=== PATIENT | male | born 2000 | race Caucasian/White ===

== ENCOUNTER 2024-07-03 21:36 | Emergency (ER) | payer OTHER, SELFPAY ==
[2024-07-03 21:37] VITALS: BP 131/77; PULSE 63; RESP 16; TEMP 36.4; O2SAT 97; BMI 26.0
--- NOTE | 2024-07-03 22:23 | EX.ED.GENINJ ---
HPI History of Present Illness Chief Complaint: Laceration Informant: patient Onset/Context/Timing Onset: Today and Hours Mechanism/Context: Blunt Injury and Fall Current Severity: Mild Maximum Severity: Mild Narrative Narrative: Healthy 23-year-old male no seen past medical history. Was at the [email or web address] riding a bucking horse and was thrown off. His lower teeth went through and through his lower lip causing a through and through laceration. This occurred around 7:30 PM. Denies any LOC. No headache or neck pain. Denies any other complaints. Thinks his last tetanus shot was around 10 to 11 years ago. Tetanus Immunization: >10 years Prior similar symptoms: No Recent Illness/Hospitalization: No PFSH PFSH Medical History no medical history no medical history Home Medications ?Medication ?Instructions ?Recorded ?Last Taken ?Type NK 07/03/24 Unknown History Allergy/AdvReac Type Severity Reaction Status Date / Time No Known Allergies Allergy Verified 07/03/24 21:40 Social History Smoking Status: Current every day smoker tobacco type: cigarettes and e-cigarettes ROS ROS ED ROS Narrative Denies recent illness. Constitutional Constitutional ED: Denies fever(s) Eyes Eyes: Denies blurry vision ENT ENT ED: Denies ear pain Cardiovascular Cardiovascular: Denies chest pain Respiratory/Chest Respiratory/Chest: Denies cough or dyspnea Gastrointestinal Gastrointestinal: Denies abdominal pain Genitourinary Genitourinary ED: Denies dysuria Musculoskeletal Musculoskeletal: Denies arthralgias Integumentary Denies abscess or Abrasions Neurologic Neurologic: Denies headache(s) Psychiatric Psychiatric: Denies anxiety Endocrine Endocrinology: Denies cold intolerance Hematologic/Lymphatic Hematologic/Lymphatic: Denies easy bleeding Allergic/Immunologic Allergic/Immunologic ED: Denies mouth swelling EXAM Physical Exam Narrative Exam Narrative: Well-appearing 23-year-old male sitting upright in bed. Vital signs are stable and afebrile. H EENT exam pupils round reactive light. He has a through and through laceration to his lower lip is below the lip on the skin not the vermilion border on the and inside of his lower lip. It is about 1 inch in length. Dentition is intact. Nontender. Not loose. He has no trouble opening closing his mouth. There is no other trauma to his face or head. Neck is nontender with normal range of motion. C-spine, T-spine L-spine and back are completely nontender. Lungs are clear equal and symmetrical. Heart regular rhythm rate about 60 no murmur. Chest wall and ribs are nontender. Abdomen is soft nontender. Pelvic girdle intact. Moving all 4 extremities. 5 out of 5 foreign agent strength. Dorsi plantarflexion intact. Normal range of motion upper and lower extremities. Nontender no deformity. Neurologically is awake and alert. Answering questions following commands. GCS of 15. No focal motor deficits. Const Vital Signs: 07/03/24 21:37 Temperature 97.5 F L Temperature Source Temporal Pulse Rate 63 Respiratory Rate 16 Blood Pressure 131/77 H Blood Pressure Mean 95 Pulse Ox 97 Oxygen Delivery Method Room Air Positive well nourished and well developed; Negative for obese, cachectic, contractures or unkempt General Appearance ED: well developed and NAD; Negative for unkempt, cachectic or contractures Nutritional Appearance: Negative for cachectic or obese HEENT HEENT Narrative: Lower lip through and through laceration approximately 1 inch. Dentition intact. No malocclusion. No trouble opening or closing his jaw. trauma; Negative for atraumatic Eyes PERRL and EOMs intact bilaterally Neck full ROM General: Negative for tenderness Chest Wall inspection of chest normal and palpation of chest normal Resp normal respiratory effort and clear to auscultation bilaterally Effort and Inspection: Negative for pain with movement Auscultation: Negative for rales, rhonchi, wheezes or diminished lung sounds Cardio regular rhythm, S1 normal heart sound, S2 normal heart sound and no murmurs Palpation: Negative for palpable S3 or palpable S4 Rate: regular rate; Negative for bradycardia or tachycardic GI normal to inspection, nondistended, normoactive bowel sounds, non-tender, non-distended and no masses Auscultation: normoactive bowel sounds Palpation: soft; Negative for tender, guarding or rebound tenderness present Back/Spine normal to inspection and no thoracic nor lumbar tenderness General Back: Negative for CVA tenderness Thoracic Spine / Upper Back: Negative for thoracic spinal tenderness Lumbar Spine / Lower Back: Negative for straight leg raise negative bilaterally or straight leg raise positive right Extremity normal to inspection and full ROM General Extremety ED: Negative for deformity, edema or tenderness General Extremity: Negative for deformity or edema Neuro oriented x3, CN's II-XII intact bilaterally, moves all extremities, no focal motor deficits and no sensory deficits noted Adeel Coma Scale: document GCS findings Spontaneous Obeys Commands Oriented 15 Sensorium / Orientation: alert, oriented to person, oriented to place and oriented to time; Negative for orientation impaired or lethargic Motor Exam: strength 5/5 throughout Psych mental status grossly normal and thought process normal Appearance: Negative for unkempt Attitude: No agitated Mood & Affect: Negative for depressed, anxious or tearful Skin no rashes or lesions noted, no wounds, skin turgor normal and no jaundice General Skin Exam: Negative for other Rashes: No rashes noted Trauma: Negative for abrasion Wounds: wounds noted PROC Procedures Lacerations Through and through lower lip laceration repair:: Length: 1.5 in Depth: Through and through lip laceration Shape: Linear Prep: Shure-Clens Laceration repair: Local, Skin sutures and Wound explored Suture Information: Vicryl, Ethilon, Simple and 5-0 Comment: Through and through lip laceration of the lower lip. The outer lacerations on the skin below the lip. About an inch in length. Goes through a 70 Finesse of tissue into the inner mucosal surface of the mouth. Both need to be repaired. Area will be locally anesthetized with plain lidocaine. Cleaned with Shur-Clens washed with saline and irrigated. Explored. The outer portion of the closed with 5-0 Ethilon. 3 simple interrupted 5-0 Ethilon sutures on the outside. The inner portion of the closed with 5-0 Vicryl. 5, 5-0 Vicryl sutures on the inside. Patient will be instructed on wound care and suture removal. Good hemostasis and wound closure is obtained. MDM MDM MDM Narrative Medical decision making narrative: 23-year-old male bucked off a horse tonight in the [place]. Through and through lip laceration. Does not want his tetanus updated. Laceration was locally anesthetized with lidocaine. Cleaned with Shur-Clens washed, irrigated with saline. Explored. Closed using five 5-0 Vicryl sutures inside. 350 simple interrupted sutures on the outside. Proper hemostasis wound closure is obtained. Discharge Plan Triage Chief Complaint: Laceration ED Provider: Sean Mullins Dx/Rx/DC Orders Clinical Impression: Laceration of lip, Animal-rider injured by fall from or being thrown from horse in noncollision accident, initial encounter Instructions: ED Laceration, Lip or Mouth Prescriptions: No Action NK Primary Care Provider: Care Physician,No Primary Referrals: NOT,DEFINED [Non-Staff] - Activity Restrictions/Additional Instructions: Ice to the area to decrease pain and swelling. Motrin and Tylenol for pain. Keep the outer lip clean with soap and water. Stitches out in 7 days. Stitches inside your lip should dissolve in 1 to 2 weeks. If they do not you can take them out also. Strongly consider getting your tetanus shot updated. If so I will do it in the next 3 days. Print Language: Kinyarwanda Disposition Disposition: Home, Self Care
[2024-07-03] MEDS: Lidocaine/Epi/Tetracaine 50 ML 1 APPLIC TOPICAL (22:42)
[2024-07-03] MEDS: Lidocaine 1% (20 ml mdv) 20 ML Vial 10 ML INFILT (22:42)
== END 2024-07-03 23:50 | disposition home or self-care (01) ==
PROVIDERS: Emergency Provider Emergency Medicine; Visit Provider Emergency Medicine
DX: S01.511A Laceration without foreign body of lip, initial encounter (principal); F17.210 Nicotine dependence, cigarettes, uncomplicated; V80.010A Animal-rider injured by fall from or being thrown from horse in noncollision accident, initial encounter; Y92.39 Other specified sports and athletic area as the place of occurrence of the external cause; F17.290 Nicotine dependence, other tobacco product, uncomplicated
CPT/HCPCS: 12011; 99283